=== PATIENT | male | born 1995 | race American Indian/Alaskan Native ===

== ENCOUNTER 2017-03-08 09:30 | Emergency (ER) | payer OTHER ==
[2017-03-08 10:55] VITALS: BP 125/76
[2017-03-08] MEDS ORDERED: TETRACAINE 0.5% OU ONE (11:55)
[2017-03-08] MEDS ORDERED: BSS OU ONE (11:55)
[2017-03-08] MEDS ORDERED: FUL-GLO OP ONE (11:55)
--- NOTE | 2017-03-08 11:59 | Emergency Department Report ---
Eye Injury/Foreign Body - HPI Duration: 3 Days Eye Location: Right Severity: Mild Tetanus Status: Up to Date Eye Symptoms: Eye Pain: No, Blurred Vision: No, Eye Redness: Yes, Grinding/ Hammering Metal: No, Used Eye Protection: No, Contact Lens Use: No, Recalls Injury: No, Photophobia: No Other History: has had a feeling that something in his eye since jamal. no trauma. no other known cause. playing on phone. va noted. no drainage. no matting. mild swelling around eye- mild redness around eye; denies being hit in eye. no contacts. no one else w same ED Review of Systems ROS: Stated complaint: EYE PAIN Other details as noted in HPI Comment: All other systems reviewed and negative Eyes: eye discharge (r eye swelling and redness since JAMAL. no known trauma. states feels like got somthing in his eye) ED Past Medical Hx - Past Medical History Previous Medical History?: Yes Hx Asthma: Yes (childhood) Additional medical history: deaf l ear. see complaint. mild swelling and redness around eye. uptake of fluor. consist. w iritis. no abrasion. no ulceration. no fb. sensation relieved w tetragain 2 gtt pre procedure - Surgical History Past Surgical History?: No - Social History Smoking Status: Current Every Day Smoker Substance Use Type: Alcohol, Marijuana - Medications Home Medications: Home Medications Medication Instructions Recorded Confirmed Last Taken Type Azithromycin [Zithromax Z-STORMY] 250 mg PO DAILY #6 tablet 03/08/17 Unknown Rx Polymyxin B Sulf/Trimethoprim 2 drop OD Q4H #1 each 03/08/17 Unknown Rx [Polytrim Eye Drops] Eye Injury Exam - Exam General: Vital signs noted. No distress. Alert and acting appropriately. - Visual Acuity Left Vision Acuity Degree: 20/25 Eye Exam: Right Fluorescein Uptake (slit lamp), Neither Injection, Neither Chemosis, Neither Abnormal Pupil, Neither EOMI, Neither Eye Foreign Body, Neither Lid Foreign Body, Neither Mucous Discharge, Neither Purulent Discharge, Neither Fluorescein Uptake, Neither Cell/Flare (slit lamp), Neither Corneal Edema, Neither Photophobia Right Vision Acuity Degree: 20/20 Bilateral Vision Acuity Degree: 20/20 ED Course Vital Signs 03/08/17 10:52 Temperature 98.5 F Pulse Rate 67 Respiratory 18 Rate Blood Pressure 125/76 Blood Pressure 125/76 [Left] O2 Sat by Pulse 100 Oximetry - Reevaluation(s) Reevaluation #1: 03/08/17 12:40 morgans irrigation per RN no trauma va noted no globe injury no life/ eye threat dc home w tx given po zpack given redness around the eye itself gtt as well will follow up ambulatory and taking po - Eye Procedure Alcaine Drops Administered: Yes Eye FB Removal: other (no fb) Eye Irrigated w/ Saline (ccs): 500 Cyclogel 2 Drops Administered: right eye Antibiotic Oinment/Drps Admin: right eye ED Medical Decision Making - Medical Decision Making see note - Differential Diagnosis non acute eye problem ro abrasion Critical care attestation.: If time is entered above; I have spent that time in minutes in the direct care of this critically ill patient, excluding procedure time. ED Disposition Clinical Impression: Iritis, Redundant eyelid Disposition: DC-01 TO HOME OR SELFCARE Is pt being admited?: No Does the pt Need Aspirin: No Condition: Stable Instructions: Conjunctivitis (ED), Eye Foreign Body (ED) Additional Instructions: do not rub eye warm compresses may help med as ordered today follow up with Dr below in 48 hours if not better you may need to see an injection molding machine tender for your ear issues Referrals: MARTIN RENEE MD [Staff Physician] - 3-5 Days MELANIE RICHARDSON MD [Staff Physician] - 3-5 Days VINNIE MATIAS MD [Staff Physician] - 3-5 Days CONNOR GOLDSMITH MD [Staff Physician] - 3-5 Days Time of Disposition: 11:57
[2017-03-08] MEDS ORDERED: NACL 0.9% 500 ML 500 ML IV ONE (12:23)
[2017-03-08] MEDS ORDERED: POLYSPORIN OD ONE (13:23)
== END 2017-03-08 13:15 | disposition home or self-care (01) ==
LOC: ED 09:30
DX: H20.9 Unspecified iridocyclitis (principal); H02.33 Blepharochalasis right eye, unspecified eyelid; F17.200 Nicotine dependence, unspecified, uncomplicated; F12.10 Cannabis abuse, uncomplicated
CPT/HCPCS: 99284; J7040

== ENCOUNTER 2019-11-07 15:59 | Emergency (ER) | payer SELFPAY ==
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
--- NOTE | 2019-11-07 17:26 | Cat Scan Report ---
CT head/brain wo con INDICATION / CLINICAL INFORMATION: 23 years Male; fall down 12 stairs, pain. TECHNIQUE: Routine CT head without contrast. All CT scans at this location are performed using CT dos e reduction for ALARA by means of automated exposure control. COMPARISON: None. FINDINGS: BRAIN / INTRACRANIAL CONTENTS: No acute hemorrhage, mass effect, midline shift, hydrocephalus, or acu te, large territorial infarct. No chronic infarct or atrophy appreciated. No significant white matter abnormality. CRANIOCERVICAL JUNCTION: No significant abnormality. ORBITS: No significant abnormality of visualized orbits. SINUSES / MASTOIDS: No significant abnormality in the visualized paranasal sinuses or mastoid air moni ls. ADDITIONAL FINDINGS: None. IMPRESSION: 1. No focal mass, hemorrhage, hydrocephalus, or acute, large territorial infarct. Signer Name: Jorge Seay MD, III Signed: 11/07/2019 5:21 PM Workstation Name: [id number]
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
[2019-11-07] MEDS ORDERED: HYDROcodone/ACETAMINOPHEN 5-325 MG TAB PO ONE (17:47)
[2019-11-07 18:08] VITALS: BP 132/89
== END 2019-11-07 18:08 | disposition home or self-care (01) ==
LOC: ED 15:59
DX: S16.1XXA Strain of muscle, fascia and tendon at neck level, initial encounter (principal); S09.90XA Unspecified injury of head, initial encounter; J45.909 Unspecified asthma, uncomplicated; X58.XXXA Exposure to other specified factors, initial encounter; Y93.89 Activity, other specified; Y92.89 Other specified places as the place of occurrence of the external cause; Y99.8 Other external cause status
CPT/HCPCS: 70450; 72125